=== PATIENT | female | born 1990 | race Caucasian/White ===

== ENCOUNTER 2025-05-16 10:19 | Emergency (ER) | payer BC ==
[~2025-05-16] VITALS: Ht 162.6 cm; Wt 65.8 kg
[2025-05-16] MEDS ORDERED: PROM118S5 PO (12:38)
[2025-05-16] MEDS ORDERED: ALBU2SYR27 PO (12:38)
[2025-05-16] MEDS ORDERED: PRED50TA PO (12:38)
[2025-05-16 12:39] VITALS: BP 134/78
[2025-05-16 12:48] VITALS: BP 134/78; TEMP 208.9; O2SAT 98
== END 2025-05-16 12:48 | disposition home or self-care (01) ==
LOC: ER 10:19
DX: J45.909 Unspecified asthma, uncomplicated (principal); Z79.52 Long term (current) use of systemic steroids
CPT/HCPCS: A4606; A4663